=== PATIENT | male | born 1960 | race Caucasian/White ===

== ENCOUNTER 2016-11-06 09:55 | Day surgery (SDC) | payer OTHER ==
[2016-11-03 10:11] VITALS: BMI 29.5
[~2016-11-06 09:55] MED LIST: LACTATED RINGERS 1,000 ML IV SCH; LIDOCAINE 1% 20 ML VIAL (10MG/ML) FOR IV START INTRADERMA PRN
[2016-11-06 10:32] VITALS: TEMP 98
[2016-11-06] MEDS ORDERED: LACTATED RINGERS 1,000 ML IV ONE ×2 (10:32)
[2016-11-06 10:43] LABS: Glucose,Whole Blood 110 mg/dL (75-99)
[2016-11-06] MEDS ORDERED: LIDOCAINE 1% INJ 10MG/ML (20 ML MDV) ONE (11:30)
[2016-11-06] MEDS ORDERED: GLYCOPYRROLATE 0.2 MG/ML 2 ML VIAL ONE (11:30)
[2016-11-06] MEDS ORDERED: PROPOFOL 10 MG/ML 20 ML VIAL IV ONE (11:30)
[2016-11-06] MEDS ORDERED: ePHEDrine 50 MG/ML 1 ML AMP ONE (11:30)
[2016-11-06 12:06] VITALS: RESP 16
--- NOTE | 2016-11-06 12:08 | P.PCN ---
Date of Procedure: 11/06/16 Procedure(s) Performed: Procedure: Colonoscopy and biopsy. Preoperative diagnosis: Screening for neoplasia. Postoperative diagnosis: Small/diminutive polyps in the proximal and distal sigmoid biopsied, but no large polyps or cancer. Preparation: HalfLytely prep. Sedation: Was provided by anesthesia. Brief clinical history: The patient is a 56-year-old male who is referred for this evaluation for screening for neoplasia because of history of polyps. In addition, the patient was noted to have occult blood in his stools. He has no abdominal complaints, bleeding or anemia. Procedure: With the patient on his left lateral decubitus position and after informed consent and adequate sedation, the perianal area was inspected and it did not show any fissures or fistulas. There were no masses felt on digital rectal examination. The Olympus CFQ 160L video colonoscope was then inserted in the rectum in the usual fashion and advanced to the cecum. Unfortunately, the preparation was less than ideal and there was still fecal material and fecal debris encountered, especially on the left side and sigmoid, that could not be suctioned totally. There was small/diminutive polyps in the proximal and distal sigmoid that were biopsied but there were no large polyps or cancer or any other obvious pathology. I retroflexed endoscope in the rectum before the endoscope was withdrawn. Low-grade internal hemorrhoids were noted but there was no evidence of bleeding. The patient tolerated the procedure well. Plan: The patient was reassured. Discussed dietary measures and local care for hemorrhoids. With his history of polyps and less than ideal preparation today, I am recommending repeat exam in 2-3 years. He will follow up with you as planned.
[2016-11-06 12:15] VITALS: BP 118/77; PULSE 70
== END 2016-11-06 12:35 | disposition home or self-care (01) ==
LOC: ORWHC2ENDO 09:55
DX: D12.5 Benign neoplasm of sigmoid colon (principal); K64.8 Other hemorrhoids; K63.5 Polyp of colon; Z86.010 Personal history of colon polyps; E11.9 Type 2 diabetes mellitus without complications; Z79.84 Long term (current) use of oral hypoglycemic drugs; F17.200 Nicotine dependence, unspecified, uncomplicated; G47.33 Obstructive sleep apnea (adult) (pediatric)
CPT/HCPCS: 88305; 45380; J2001; J2704

== ENCOUNTER 2020-09-01 10:29 | Day surgery (SDC) | payer OTHER ==
[2020-08-31 15:17] VITALS: BMI 30.1
--- NOTE | 2020-08-31 17:34 | P.HPIHPCON ---
History of Present Illness H&P Date: 08/31/20 Chief Complaint: left ureteral stone Mr Garcia is a 60 yo male with hx of 4mm left distal ureteral stone. He has had three ED presentation secondary to his kidney stone. On evaluation in clinic patient is still symptomatic secondary to his stone. I discussed with him given his ongoing symptoms we can proceed with left sided ureteroscopy with holmium laser, Discussed risk which includes but not limited to bleeding, infection and injury to the ureter. He understood all risk and agreed to proceed with left sided ureteroscopy with holmium laser, stone basketting and possible stent placement Consent for Procedure: I have explained the operation/procedure to the patient, including the risks, benefits, side effects, alternative therapies (including not receiving the proposed treatment or service), the likelihood of the patient achieving his/her goals, and potential recuperation problems for the procedure/sedation/analgesia, as well as any blood products, if indicated. I also explained to the patient the risks, benefits and side effects of the alternatives, as well as the risks related to not receiving the proposed procedure, care, treatment, or services. Past Medical History Past Medical History: Diabetes Mellitus, Sleep Apnea/CPAP/BIPAP Additional Past Medical History / Comment(s): kidney stones, no cpap,eczema on arms, colon polyps History of Any Multi-Drug Resistant Organisms: None Reported Past Surgical History: No Surgical Hx Reported Additional Past Surgical History / Comment(s): colonoscopy Past Anesthesia/Blood Transfusion Reactions: No Reported Reaction, Family History of Problems w/ Anesthesia Additional Past Anesthesia/Blood Transfusion Reaction / Comment(s): mother-hard time waking up from anesthesia Smoking Status: Current every day smoker - Past Family History Mother Family Medical History: Cancer Medications and Allergies Home Medications Medication Instructions Recorded Confirmed Type Cephalexin [Keflex] 500 mg PO Q8HR 08/31/20 08/31/20 History HYDROcodone/APAP 5-325MG [Mclean 1 - 2 tab PO Q4HR PRN 08/31/20 08/31/20 History 5-325] Ibuprofen 800 mg PO TID PRN 08/31/20 08/31/20 History Tamsulosin HCl [Flomax] 0.4 mg PO 1500 08/31/20 08/31/20 History metFORMIN HCL [Glucophage] 1,000 mg PO BID 08/31/20 08/31/20 History Allergies Allergy/AdvReac Type Severity Reaction Status Date / Time No Known Allergies Allergy Verified 08/31/20 15:08 Surgical - Exam - General well developed, well nourished, moderate distress, moderate pain - ENT normal nares, normal mucosa - Respiratory normal expansion, normal respiratory effort - Psychiatric oriented to time, oriented to person, oriented to place Assessment and Plan Assessment: 60 yo male with hx of left sided ureteral stone OR for Left sided ureteroscopy with holmium laser, stone basketting and possible stent placement
[~2020-09-01 10:29] MED LIST changes: +DEXAMETHASONE SOD PHOSPHATE 4 MG/ML 1 ML VIAL IV ONE; +GENTAMICIN 120 MG in SODIUM CHLORIDE 0.9% 100 ML IVPB PRN; +HYDROmorphone 0.5 MG/0.5 ML SYRINGE IVP PRN; -LACTATED RINGERS 1,000 ML IV SCH; +LIDOCAINE 1% (10MG/ML) FOR IV START INTRADERMA PRN; -LIDOCAINE 1% 20 ML VIAL (10MG/ML) FOR IV START INTRADERMA PRN
--- NOTE | 2020-09-01 11:04 | XR ---
KUB HISTORY: Kidney stones Frontal KUB and 2 images No comparisons Multiple calcifications are present within the pelvis which are likely vascular. Difficult to exclude a distal ureteral calculus. Calcification superimposed over the right kidney is noted superimposed o eric the rib, but there may be 2 calcifications each measuring 3 to 4 mm. Overlying bowel gas obscures detail. Lung bases are clear. No pneumoperitoneum. IMPRESSION: Nephrolithiasis and additional findings above.
[2020-09-01 11:41] LABS: Glucose,Whole Blood 130 mg/dL (75-99)
[2020-09-01] MEDS: LACTATED RINGERS 1,000 ML IV SCH ×2 (11:42→12:08)
[2020-09-01] MEDS ORDERED: ONDANSETRON 4 MG/2 ML VIAL ONE (11:45)
[2020-09-01] MEDS ORDERED: PROPOFOL 10 MG/ML 20 ML VIAL IV ONE (12:05)
[2020-09-01] MEDS ORDERED: fentaNYL (PF) 50 MCG/ML 2 ML AMP ONE (12:05)
[2020-09-01] MEDS ORDERED: LIDOCAINE 1% INJ 10MG/ML (20 ML MDV) ONE (12:05)
[2020-09-01] MEDS ORDERED: SUCCINYLCHOLINE CHLORIDE 100 MG/5 ML SYR IV ONE (12:05)
[2020-09-01] MEDS ORDERED: ePHEDrine SULFATE/0.9% NACL/PF 50 MG/5 ML SYRINGE IV ONE (12:05)
[2020-09-01] MEDS ORDERED: MIDAZOLAM 2 MG/2 ML VIAL ONE (12:05)
[2020-09-01] MEDS ORDERED: IOPAMIDOL-370 50ML BTL MISCELLANE ONE (12:39)
[2020-09-01 13:09] VITALS: RESP 16; TEMP 97.8
--- NOTE | 2020-09-01 13:11 | P.OP ---
Date of Procedure: 09/01/20 Preoperative Diagnosis: Left ureteral calculi Postoperative Diagnosis: Same Procedure(s) Performed: Cystoscopy, left ureteroscopy, ureteral balloon dilation, holmium laser lithotripsy, stone basketing, retrograde pyelogram and stent placement Implants: 6-Chinese by 26 cm stent left on a string Anesthesia: CAROLYN Surgeon: Willie Arce Estimated Blood Loss (ml): 5 Pathology: other (ureteral stone) Condition: stable Disposition: PACU Indications for Procedure: Mr Garcia is a 60 yo male with hx of 4mm left distal ureteral stone. He has had three ED presentation secondary to his kidney stone. On evaluation in clinic patient is still symptomatic secondary to his stone. I discussed with him given his ongoing symptoms we can proceed with left sided ureteroscopy with holmium laser, Discussed risk which includes but not limited to bleeding, infection and injury to the ureter. He understood all risk and agreed to proceed with left sided ureteroscopy with holmium laser, stone basketting and possible stent placement Operative Findings: Left distal ureteral stone Description of Procedure: Patient was brought to the operating room, general anesthesia was induced. He was prepped and draped in sterile fashion a placemed in dorsal lithotomy position. Cystoscopy fitted with a 21-Chinese sheath was inserted per urethra, of note patient had a wide caliber bulbar stricture but I was able to navigate the scope past the stricture. Cystoscopy was performed which showed no abnormality within the bladder. Attention was then carried to the left ureteral orifice, cystoscope was withdrawn and the semirigid ureteroscope was inserted, and advanced up the urethra, I attempted to advance the ureteroscope past the UVJ but it was to narrowed. at this time a sensor wire was advanced through the ureteroscope and the ureteroscope was withdrawn with the wire in place. Next a cystoscope was backloaded over the wire and a ureteral balloon dilator was passed over the wire and into the UVJ. Using the balloon dilator the UVJ was dilated. Next the balloon dilator was removed with the wire in place. Next a semirigid ureteroscope was inserted per urethra and advanced up the left ureteral orifice, the stone was encountered in the distal ureter. Using the holmium laser the stone was fragmented into small fragments. Stone fragments were removed using the stone basket and sent to pathology. Next the ureteroscope was advanced all the way up to the proximal ureter and there was no evidence of any stones. Retrograde Pyelogram was performed which showed no filling defect within the kidney. Pullback ureteroscopy was performed which showed no injury to the ureter or any sizable ureteral fragments. A ureteral stent was passed over the wire, the proximal curl was visualized on fluoroscopy and the distal curl was visualized using the cystoscope. The bladder was emptied and the case. The patient started the procedure well was taken to PACU in stable condition
[2020-09-01 13:16] LABS: Glucose,Whole Blood 141 mg/dL (75-99)
[2020-09-01 14:06] VITALS: BP 141/75; PULSE 72
--- NOTE | 2020-09-01 14:11 | FL ---
Fluoroscopy HISTORY: Kidney stone, stent placement 12 seconds fluoroscopy time supplied to the referring clinician. 4 intraoperative C-arm images docum ent the procedure. See dictated report from urology.
== END 2020-09-01 14:29 | disposition home or self-care (01) ==
LOC: OR 10:29
PROVIDERS: ATTEND Urology
DX: N20.2 Calculus of kidney with calculus of ureter (principal); E11.9 Type 2 diabetes mellitus without complications; F17.210 Nicotine dependence, cigarettes, uncomplicated; L30.9 Dermatitis, unspecified; Z86.010 Personal history of colon polyps; G47.30 Sleep apnea, unspecified; Z98.890 Other specified postprocedural states; Z82.49 Family history of ischemic heart disease and other diseases of the circulatory system; Z80.9 Family history of malignant neoplasm, unspecified; Z79.84 Long term (current) use of oral hypoglycemic drugs; Z79.899 Other long term (current) drug therapy
CPT/HCPCS: 74018; 74420; 82365

== ENCOUNTER → 2020-10-05 | Outpatient (CLI) | payer OTHER ==
--- NOTE | 2020-10-05 15:27 | US ---
EXAMINATION TYPE: US kidneys/renal and bladder DATE OF EXAM: 10/05/2020 COMPARISON: NONE CLINICAL HISTORY: 60-year-old male N20.1 Calculus in bladder. TECHNIQUE: Multiple sonographic images of the kidneys and bladder are obtained. FINDINGS: EXAM MEASUREMENTS: Right Kidney: 13.0 x 4.6 x 5.4 cm without hydronephrosis. Left Kidney: 12.4 x 5.6 x 6.6 cm without hydronephrosis. There is an upper pole cortical cyst measuri ng 2.2 cm. Bladder: wnl Bilateral Jets seen: Yes IMPRESSION: No hydronephrosis. Incidental upper pole cortical cyst on the left measures 2.2 cm.
== END | disposition home or self-care (01) ==
LOC: RADUSWWP 12:49
PROVIDERS: ATTEND Urology
DX: N20.1 Calculus of ureter (principal)
CPT/HCPCS: 76770

== ENCOUNTER → 2021-05-02 | Outpatient (CLI) | payer OTHER ==
[2021-05-02 12:53] VITALS: BP 131/79; PULSE 73; RESP 18; TEMP 98
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
== END | disposition home or self-care (01) ==
LOC: PNWHC3 12:26
DX: M48.02 Spinal stenosis, cervical region (principal); M47.892 Other spondylosis, cervical region
CPT/HCPCS: 99211

== ENCOUNTER → 2021-06-24 | Day surgery (SDC) | payer OTHER ==
[~2021-06-24] MED LIST changes: +.fentaNYL (PF) 50 MCG/ML 2 ML AMP ONE; -DEXAMETHASONE SOD PHOSPHATE 4 MG/ML 1 ML VIAL IV ONE; -GENTAMICIN 120 MG in SODIUM CHLORIDE 0.9% 100 ML IVPB PRN; -HYDROmorphone 0.5 MG/0.5 ML SYRINGE IVP PRN; +LACTATED RINGERS 1,000 ML IV SCH; +LIDOCAINE 1% (10MG/ML) FOR IV START INTRADERMA ONE; -LIDOCAINE 1% (10MG/ML) FOR IV START INTRADERMA PRN; +MIDAZOLAM 2 MG/2 ML VIAL ONE; +ROPIVACAINE 5MG/ML 20ML VIAL ONE; +methylPREDNISolone ACETATE 40 MG/ML 1 ML VIAL ONE
[2021-06-24 12:29] VITALS: TEMP 97.3
[2021-06-24 12:35] LABS: Glucose,Whole Blood 208 mg/dL (75-99)
--- NOTE | 2021-06-24 13:44 | FL ---
EXAMINATION TYPE: FL guided pain mgmt statistic DATE OF EXAM: 06/24/2021 HISTORY: Fluoroscopy time 20 seconds of fluoroscopy provided. IMPRESSION: 1. Fluoroscopy time.
[2021-06-24 13:45] LABS: Glucose,Whole Blood 196 mg/dL (75-99)
[2021-06-24 13:52] VITALS: BP 120/73; PULSE 70; RESP 17
--- NOTE | 2021-06-24 14:51 | P.PCN ---
Date of Procedure: 06/24/21 Procedure(s) Performed: PREOPERATIVE DIAGNOSIS: Cervical Spondylosis with Facet Arthropathy.without myelopathy. 2-myofascial pain syndrome thoracic paraspinal muscles and right shoulder blade area POSTOPERATIVE DIAGNOSIS: Cervical Spondylosis Facet Arthropathy. Without myelopathy PROCEDURES:1- Diagnostic right. C4 , C5 , and C6 medial branch blocks, with fluoroscopic guidance (fluoroscopy images available in radiology department ) ( to target the facet joint at Right C4- 5 , C5- 6 ). 2-trigger point injections right side thoracic para vertebral muscles and right shoulder blade area, a total of 4 trigger point injected ANESTHESIA: monitered anesthesia care, as per anesthesia department . EBL: Minimal PROCEDURE INDICATION: The patient with neck pain secondary to cervical arthropathy unresponsive to more conservative treatments. PROCEDURE DESCRIPTION / TECHNIQUE: The patient was seen and identified in the preoperative area. Risks, benefits, complications, and alternatives were discussed with the patient, the patient agreed to proceed with the procedure and signed the consent. IV was started. Vital signs remained stable throughout the procedure. Patient was taken to the OR and time out was completed. The patient was placed in the prone position on the procedure table. A pillow was placed under the patients chest to increase the cervical interlaminar space. The cervical area was prepped and draped in the usual sterile fashion. Critical pause was taken. Vital signs were closely monitored during the procedure. Conscious sedation was used during the procedure to decrease patients anxiety. Using cross-table lateral fluoroscopy, the centroid of the trapezoid of right C4 , C5 and C6, was identified, marked, and localized with 1% lidocaine 1 ml at each level for skin and Sub Q infiltrations . Subsequently, a 25 G 3 spinal needle was advanced guided by fluoroscopy to the centroid of the trapezoid of Right C4 , C5, C6 . Arroyo tip position was confirmed at the centroid of the trapezoids of Right C4 , C5 ,C6 with anteroposterior fluoroscopy. Subsequently, 1.5 ml of preservative-free Ropivacaine 0.5% mixed with Depo- Medrol 40 mg and half ml of the mixture was injected after negative aspiration for blood and CSF. Arroyo was then removed intact . In the trigger point injection in the right side thoracic paraspinal muscles, right shoulder blade area ( total 4 trigger point ) each one of them injected with ropivacaine 0.5% using 25-gauge needle, injections and after negative aspiration and there was no paresthesia during the injection patient tolerated the procedure well without any complications COMPLICATIONS: No acute complications. DISPOSITION / PLANS: The patient was placed in a supine position and transferred to the recovery area in a stable condition for observation and was discharged from the recovery room after meeting discharge criteria. Home discharge instructions given to the patient by the staff. The patient was reexamined prior to discharge. The patient will schedule a follow up in the clinic in 2-4 weeks.
== END ==
LOC: ORPAIN 12:07
PROVIDERS: ATTEND Specialist
DX: M47.812 Spondylosis without myelopathy or radiculopathy, cervical region (principal); M47.22 Other spondylosis with radiculopathy, cervical region
CPT/HCPCS: 20553; 64490; 64491; J2250; J3010

== ENCOUNTER → 2021-07-27 | Outpatient (CLI) | payer OTHER ==
[2021-07-27 10:34] VITALS: BP 118/73; PULSE 89; RESP 18
== END | disposition home or self-care (01) ==
LOC: PNWHC3 08:34
PROVIDERS: ATTEND Physician Assistant Medical
DX: M54.2 Cervicalgia (principal); M25.511 Pain in right shoulder
CPT/HCPCS: 99211

== ENCOUNTER → 2021-09-08 | Day surgery (SDC) | payer OTHER ==
[2021-09-07 11:34] VITALS: BMI 29.6
[~2021-09-08] MED LIST changes: -.fentaNYL (PF) 50 MCG/ML 2 ML AMP ONE; +IV FLUID CONTINUATION 700 ML IV ONE; +LACTATED RINGERS 1,000 ML IV ONE; -LIDOCAINE 1% (10MG/ML) FOR IV START INTRADERMA ONE; +TRIAMCINOLONE ACETONIDE 40 MG/ML 1 ML VIAL ONE; +fentaNYL (PF) 50 MCG/ML 2 ML AMP ONE; -methylPREDNISolone ACETATE 40 MG/ML 1 ML VIAL ONE
[2021-09-08 07:23] VITALS: PULSE 84; RESP 16; TEMP 98.3
[2021-09-08 07:43] LABS: Glucose,Whole Blood 196 mg/dL (75-99)
--- NOTE | 2021-09-08 08:14 | P.PCN ---
Date of Procedure: 09/08/21 Description of Procedure: Pre and postop diagnosis: Myofascial pain syndrome Procedure: Trigger point injections X 4 Muscle group X right side trapezius, right-sided cervical paraspinal, and right-sided latissimus dorsi muscle Surgeon: Amelia Beaver Anesthesia: Versed 1 mg, and fentanyl 50 g Complications: None Estimated blood loss: None Specimen removed: None Procedure indications: Patient had a history of myofascial pain syndrome. Patient tried conservative therapy. Came here for intervention procedure for better pain relief. Procedure description: Patient was seen and identified in the holding area risk benefits competitions alternative discussed with the patient. Patient agreed to proceed for the procedure signed the consent. Patient taken to the procedure area. Timeout was completed. A total number of 4 - trigger point area was marked with a sterile marker. After ChloraPrep used to clean the area. Critical pause was taken. Using 25-gauge 1-1/[address] half way. Needle entered in each market site 4 mL of block solution injected at each level. The block solution containing 15 ml of 0.5% preservative-free ropivacaine with Kenlog 40 MG. Needle removed intact skin cleaned and Band-Aid applied. Patient tolerated the procedure well. Disposition: Patient discharge home after meeting the discharge criteria from the recovery. Patient scheduled to follow up with the pain clinic in 4 weeks for follow-up visit.
[2021-09-08 08:51] VITALS: BP 141/76
== END ==
LOC: ORPAIN 07:05
DX: M79.18 Myalgia, other site (principal); M19.90 Unspecified osteoarthritis, unspecified site; Z98.890 Other specified postprocedural states
CPT/HCPCS: 20553; J2250; J3301; J3010; J2795; 99152

== ENCOUNTER → 2022-01-06 | Day surgery (SDC) | payer OTHER ==
[2022-01-05 12:30] VITALS: BMI 27.3
[~2022-01-06] MED LIST changes: -IV FLUID CONTINUATION 700 ML IV ONE; -LACTATED RINGERS 1,000 ML IV ONE; +PROPOFOL 10 MG/ML 20 ML VIAL IV ONE; -ROPIVACAINE 5MG/ML 20ML VIAL ONE; -TRIAMCINOLONE ACETONIDE 40 MG/ML 1 ML VIAL ONE
[2022-01-06 07:54] LABS: Glucose,Whole Blood 136 mg/dL (70-110)
[2022-01-06 07:55] VITALS: RESP 16; TEMP 97.7
--- NOTE | 2022-01-06 09:07 | P.PCN ---
Date of Procedure: 01/06/22 Procedure(s) Performed: BRIEF HISTORY: Patient is a 61-year-old pleasant white male scheduled for an elective colonoscopy as a part of evaluation of prior history of colon polyps. Last colonoscopy was 5 years ago. PROCEDURE PERFORMED: Colonoscopy with snare polypectomy PREOPERATIVE DIAGNOSIS: History of colon polyps. IV sedation per Anesthesia. PROCEDURE: After informed consent was obtained, the patient, was brought into the endoscopy unit. IV sedation was administered by Anesthesia under continuous monitoring. Digital rectal examination was normal. Initially the Olympus CF-160 flexible video colonoscope was then inserted in the rectum, gradually advanced into the cecum without any difficulty. Careful examination was performed as the scope was gradually being withdrawn. Ileocecal valve and the appendiceal orifice were visualized and appeared normal. Prep was excellent. Mucosa of the cecum, a 5 mm polyp that was removed by snare polypectomy. In the hepatic flexure there was a 1 cm broad-based polyp removed by snare polypectomy. Rest of the ascending colon, transverse colon, descending colon were normal. In the sigmoid colon there was a 5 mm pedunculated sigmoid polyp removed by snare polypectomy. In the rectosigmoid colon there was a 5 mm, 6 mm and 7 mm 2 polyps removed by snare polypectomy. In the rectum there was a 2 mm, 4 mm and 5 mm sessile polyps removed by snare polypectomy.. Retroflexion was performed in the rectum and no lesions were seen. The patient tolerated the procedure well. IMPRESSION: 5 mm to cecal polyp status post snare polypectomy 1 cm hepatic flexure polyp status post polypectomy 5 mm sigmoid colon polyp status post polypectomy 5 mm, 6 cm and 7 mm 2 rectosigmoid polyps status post polypectomy 3 mm, 4 mm and 5 mm rectal polyps status post polypectomy RECOMMENDATIONS: Findings of this examination were discussed with the patient as well as his family. He was advised to follow with the biopsy results. If the biopsy reveals adenoma he can have a repeat colonoscopy in 3 years..
[2022-01-06 09:38] VITALS: BP 119/78; PULSE 77
== END ==
LOC: ORWHC2ENDO 07:24
PROVIDERS: ATTEND Internal Medicine Gastroenterology
DX: Z12.11 Encounter for screening for malignant neoplasm of colon (principal); D12.0 Benign neoplasm of cecum; D12.3 Benign neoplasm of transverse colon; D12.5 Benign neoplasm of sigmoid colon; K62.1 Rectal polyp; Z86.010 Personal history of colon polyps; E11.9 Type 2 diabetes mellitus without complications; F17.200 Nicotine dependence, unspecified, uncomplicated; Z79.84 Long term (current) use of oral hypoglycemic drugs; Z80.0 Family history of malignant neoplasm of digestive organs
CPT/HCPCS: 88305; 45385; J2250; J3010; J2704

== ENCOUNTER → 2023-09-18 | Outpatient (CLI) | payer OTHER ==
--- NOTE | 2023-09-19 14:35 | US ---
EXAMINATION TYPE: US kidneys/renal and bladder DATE OF EXAM: 09/18/2023 COMPARISON: NONE CLINICAL INDICATION: Male, 63 years old with history of R10.2 PELVIC PAIN N20.0 CALCULUS OF KIDNEY; B ack pain, hematuria. History of kidney stones EXAM MEASUREMENTS: Right Kidney: 13.0 x 4.9 x 5.3 cm Left Kidney: 13.6 x 5.9 x 4.4 cm Right Kidney: Echogenic focus midpole = 0.6cm. No hydronephrosis. Left Kidney: Mild hydronephrosis. Benign upper pole renal cortical cyst measuring 2.8 x 3.1 x 3.0cm Bladder: appears wnl. Prostate gland is borderline enlarged at 4.0 cm wide. Bilateral Jets seen: no IMPRESSION: 1. No hydronephrosis. 2. A nonobstructive 6 mm right midpole renal stone.
== END | disposition home or self-care (01) ==
LOC: RADUSWWP 12:58
PROVIDERS: ATTEND Student in an Organized Health Care Education/Training Program
DX: N20.0 Calculus of kidney (principal)
CPT/HCPCS: 76770

== ENCOUNTER → 2023-10-03 | Outpatient (CLI) | payer OTHER ==
[2023-10-03 18:41] LABS: Eosinophils # (A) 0.44 X 10*3/uL (0.04-0.35); Eosinophils % (A) 4.5 %; HCT 45.6 % (39.6-50.0); HGB 15.7 g/dL (13.0-17.0); Lymphocytes # (A) 3.58 X 10*3/uL (0.90-5.00); MCH 33.5 pg (27.0-32.0); MCHC 34.4 g/dL (32.0-37.0); MCV 97.2 FL (80.0-97.0); Mean Platelet Volume 9.3 FL (9.5-12.2); Monocytes # (A) 0.87 X 10*3/uL (0.20-1.00); NRBC Per 100 WBC 0 X 10*3/uL (0.00-0.01); Neutrophils # (A) 4.66 X 10*3/uL (1.80-7.70); Neutrophils % (A) 48.2 %; Platelet Count 249 X 10*3/uL (140-440); RBC 4.69 X 10*6/uL (4.40-5.60); RDW 12.5 % (11.5-14.5); WBC 9.68 X 10*3/uL (4.50-10.00)
[2023-10-03 18:52] LABS: BUN/Creat Ratio 14.71 Ratio (12.00-20.00); Blood Urea Nitrogen 10.3 mg/dL (9.0-27.0); Calcium 10.1 mg/dL (8.7-10.3); Carbon Dioxide 24.9 mmol/L (21.6-31.8); Chloride 107 mmol/L (96-109); Glucose 157 mg/dL (70-110); Potassium 4.4 mmol/L (3.5-5.5); Sodium 143 mmol/L (135-145)
[2023-10-03 23:21] LABS: Appearance,Urine Clear (Clear); Bilirubin,Urine Negative (Negative); Blood,Urine Negative (Negative); Color,Urine Yellow (Yellow); Ketones,Urine Trace (Negative); Nitrite,Urine Negative (Negative); PH, Urine 5.5; Specific Gravity,Urine 1.023 (1.001-1.030); Urobilinogen,Urine 0.2 E.U./DL
== END | disposition home or self-care (01) ==
LOC: LABPAT 13:04
PROVIDERS: ATTEND Urology
DX: Z01.812 Encounter for preprocedural laboratory examination (principal); N20.0 Calculus of kidney; R31.0 Gross hematuria
CPT/HCPCS: 36415; 80048; 81003; 85025; 87086

== ENCOUNTER 2023-10-10 10:54 | Day surgery (SDC) | payer OTHER ==
[~2023-10-10 10:54] MED LIST changes: +DEXAMETHASONE SOD PHOSPHATE 4 MG/ML 1 ML VIAL IV ONE; +HYDROmorphone 0.5 MG/0.5 ML SYRINGE IVP PRN; -LACTATED RINGERS 1,000 ML IV SCH; +LIDOCAINE 1% (10MG/ML) FOR IV START INTRADERMA PRN; +MIDAZOLAM 2 MG/2 ML VIAL IV PRN; -MIDAZOLAM 2 MG/2 ML VIAL ONE; -PROPOFOL 10 MG/ML 20 ML VIAL IV ONE; -fentaNYL (PF) 50 MCG/ML 2 ML AMP ONE
[2023-10-10] MEDS: LACTATED RINGERS 1,000 ML IV SCH (11:34)
[2023-10-10] MEDS: ONDANSETRON 4 MG/2 ML VIAL IVP ONE (11:47)
[2023-10-10 11:50] LABS: Glucose,Whole Blood 171 mg/dL (70-110)
--- NOTE | 2023-10-10 12:03 | P.HPIHPCON ---
History of Present Illness H&P Date: 10/10/23 Chief Complaint: Gross hematuria, right-sided renal stones This is a 63-year-old male with history of a 6 mm right-sided renal stone, and having recurrent gross hematuria. He is symptomatic from his stone. Discussed with him I do recommend evaluation with a cystoscopy and upper tract imaging. He did undergo a renal bladder ultrasound was only significant for renal stone. Discussed with him we will proceed to the OR with a cystoscopy and a bilateral retrograde pyelogram, we will address his right-sided renal stone at the same time given his symptoms. Risk of bleeding, infection, injury to the ureter were discussed in details. Discussed also if I do see abnormality on cystoscopy then we will proceed with a biopsy. Consent for Procedure: I have explained the operation/procedure to the patient, including the risks, benefits, side effects, alternative therapies (including not receiving the proposed treatment or service), the likelihood of the patient achieving his/her goals, and potential recuperation problems for the procedure/sedation/analgesia, as well as any blood products, if indicated. I also explained to the patient the risks, benefits and side effects of the alternatives, as well as the risks related to not receiving the proposed procedure, care, treatment, or services. Past Medical History Past Medical History: COPD, Diabetes Mellitus, Skin Disorder, Sleep Apnea/C PAP/BIPAP Additional Past Medical History / Comment(s): Hx kidney stones, eczema , colon polyps. left foot pain flat foot. pt not wearing cpap, vertigo History of Any Multi-Drug Resistant Organisms: MRSA Date of last positivie culture/infection: 2022 MDRO Source:: rt side Past Surgical History: No Surgical Hx Reported Additional Past Surgical History / Comment(s): Colonoscopy, kidney stone surgery. wisdom teeth Past Anesthesia/Blood Transfusion Reactions: No Reported Reaction, Motion Sickness Additional Past Anesthesia/Blood Transfusion Reaction / Comment(s): SP[place] Smoking Status: Current every day smoker - Past Family History Mother Family Medical History: Cancer Additional Family Medical History / Comment(s): COLON CANCER Medications and Allergies Home Medications Medication Instructions Recorded Confirmed Type Ibuprofen 800 mg PO TID PRN 08/31/20 10/10/23 History metFORMIN HCL [Glucophage] 1,000 mg PO BID 08/31/20 10/10/23 History Ibuprofen/Diphenhydramine HCl 1 each PO DIRECTED PRN 10/03/23 10/10/23 History [Advil Pm Liqui-Gels] Tamsulosin HCl [Flomax] 0.4 mg PO DIRECTED PRN 10/03/23 10/10/23 History Allergies Allergy/AdvReac Type Severity Reaction Status Date / Time No Known Allergies Allergy Verified 10/10/23 11:31 Surgical - Exam Vital Signs Temp Pulse Resp BP Pulse Ox 97.0 F L 67 18 111/62 98 10/10/23 11:30 10/10/23 11:30 10/10/23 11:30 10/10/23 11:30 10/10/23 11:30 - General no distress, no pain - Eyes normal ocular movement, no pale - ENT normal nares, normal mucosa - Respiratory normal expansion, normal respiratory effort - Abdomen Abdomen: soft, non tender Results - Labs Abnormal Lab Results - Last 24 Hours (Table) 10/10/23 Range/Units 11:42 POC Glucose (mg/dL) 171 H (70-110) mg/dL Assessment and Plan Assessment: OR for cystoscopy, bilateral retrograde pyelogram, right ureteroscopy, holmium laser lithotripsy, stone basketing and stent insertion
[2023-10-10] MEDS ORDERED: PHENYLEPHRINE 10 MG/ML VIAL ONE (12:18)
[2023-10-10] MEDS ORDERED: fentaNYL (PF) 50 MCG/ML 2 ML AMP ONE (12:18)
[2023-10-10] MEDS ORDERED: GLYCOPYRROLATE 0.2 MG/ML 2 ML VIAL ONE (12:18)
[2023-10-10] MEDS ORDERED: LIDOCAINE 1% INJ 10MG/ML (20 ML MDV) ONE (12:18)
[2023-10-10] MEDS ORDERED: ePHEDrine 50 MG/ML 1 ML VIAL ONE (12:18)
[2023-10-10] MEDS ORDERED: PROPOFOL 10 MG/ML 20 ML VIAL IV ONE (12:18)
--- NOTE | 2023-10-10 12:43 | XR ---
EXAMINATION TYPE: XR KUB DATE OF EXAM: 10/10/2023 11:26 AM CLINICAL INDICATION:Male, 63 years old with history of kidney stones; [facility] COMPARISON: 09/01/2020 TECHNIQUE: One radiographic view of the abdomen was obtained. FINDINGS: The bowel gas pattern is nonspecific without dilated loops of small or large bowel. There i s no evidence for organomegaly or pneumoperitoneum. The osseous structures are intact. Right renal calculi measuring up to 7 mm. Fecal material and gas are demonstrated throughout the colon and rectum . IMPRESSION: 1. Right renal calculi measuring up to 7 mm. 2. Nonspecific bowel gas pattern without radiographic evidence for acute process.
[2023-10-10] MEDS: IOPAMIDOL-370 100ML BTL MISCELLANE ONE (12:47)
--- NOTE | 2023-10-10 13:45 | P.OP ---
Date of Procedure: 10/10/23 Preoperative Diagnosis: Gross hematuria, right renal stone Postoperative Diagnosis: Same Procedure(s) Performed: Cystoscopy, bilateral retrograde pyelogram, right ureteroscopy, holmium laser lithotripsy, ureteral balloon dilation stone basketing and stent insertion Implants: 7 Cymro by 26 cm stent in the right ureter left on a string Anesthesia: CAROLYN Surgeon: Willie Arce Estimated Blood Loss (ml): 5 Pathology: other (right renal stone) Condition: stable Disposition: PACU Indications for Procedure: This is a 63-year-old male with history of a 6 mm right-sided renal stone, and having recurrent gross hematuria. He is symptomatic from his stone. Discussed with him I do recommend evaluation with a cystoscopy and upper tract imaging. He did undergo a renal bladder ultrasound was only significant for renal stone. Discussed with him we will proceed to the OR with a cystoscopy and a bilateral retrograde pyelogram, we will address his right-sided renal stone at the same time given his symptoms. Risk of bleeding, infection, injury to the ureter were discussed in details. Discussed also if I do see abnormality on cystoscopy then we will proceed with a biopsy Operative Findings: Right-sided renal stone Description of Procedure: Patient brought to the operating room, general anesthesia was induced. He was prepped and draped in sterile fashion and placed in a dorsolithotomy position. Cystoscopy fitted with a 21 Cymro sheath was inserted per urethra, cystoscopy was performed which showed no abnormality within the bladder. 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 Attention was then carried to the left ureteral orifice which was intubated with an open-ended catheter, retrograde pyelogram was performed on that side which showed no filling defect or hydronephrosis. Attention was then carried to the right side which was intubated with an open ended catheter. Retrograde pyelogram was performed on that side which showed no hydronephrosis, patient had a duplicated system with a common sheath at the distal ureter. There was a questionable filling defect at the upper moiety within the upper pole. Of note patient did have narrowing at the UVJ. At this time a sensor wire was advanced through the catheter and the catheter was removed with the wire in place. I attempted to advance the wire into the upper moiety but was not able to. At this time the 12 Cymro balloon dilator was passed over the wire and the UVJ was dilated under fluoroscopy. Next the semirigid ureteroscope was advanced per urethra and up the right ureteral orifice, it was advanced up into the point where the ureter splits, at this point I was able to advance a wire into the upper moiety. I further advanced the semirigid ureteroscope through the sp litting of the ureter all the way up to the mid ureter which showed no stones. Pullback ureteroscopy was performed showed no ureteral stone or injury to the ureter. Next under fluoroscopy and 1113 Cymro access sheath was passed over the wire and into the proximal ureter. The flexible ureteroscope was inserted through the access sheath, renoscopy was performed showed a large stone in the upper pole. Using the holmium laser the stone was fragmented, sizable stone fragments were removed and sent for analysis. Pullback ureteroscopy was performed showed no injury to the ureter or any ureteral stones, as ureteroscope was withdrawn and a sensor wire was advanced through. Under under fluoroscopy there is no radiopaque densities that were visualized. Next a ureteral stent was passed over the wire, the proximal curl was visualized on fluoroscopy and the distal curl was visualized using the cystoscope. The stent was left on a string and taped to the patient penis. Patient tolerated the procedure was taken to recovery in stable condition
[2023-10-10 13:53] VITALS: TEMP 97.4
[2023-10-10] MEDS ORDERED: ACETAMINOPHEN TAB 325 MG TAB ONE (14:54)
[2023-10-10] MEDS: ACETAMINOPHEN TAB 325 MG TAB PO ONE (14:55)
[2023-10-10 15:11] VITALS: BP 137/84; PULSE 81; RESP 18
--- NOTE | 2023-10-10 16:21 | FL ---
EXAMINATION TYPE: FL urography retrograde Intraoperative/procedural fluoroscopic services were provid ed. Total fluoroscopy time is 1 minute 42 seconds seconds with a total of 13 submitted images to PACS . Please see the operative/procedural note for further details. DAP: 14.041 Gycm2
== END 2023-10-10 15:23 | disposition home or self-care (01) ==
LOC: OR 10:54
PROVIDERS: ATTEND Urology
DX: N20.0 Calculus of kidney (principal); R31.0 Gross hematuria; G47.33 Obstructive sleep apnea (adult) (pediatric); F17.210 Nicotine dependence, cigarettes, uncomplicated; Z79.84 Long term (current) use of oral hypoglycemic drugs; Z79.899 Other long term (current) drug therapy; Z98.890 Other specified postprocedural states; J44.9 Chronic obstructive pulmonary disease, unspecified; F17.200 Nicotine dependence, unspecified, uncomplicated
CPT/HCPCS: 82365; 74420; 74018; 52356; C2625; C1758; C1769; J0690; J2405; J2001; J3010; J2704; Q9967; J2371

== ENCOUNTER → 2024-09-22 | Outpatient (CLI) | payer OTHER ==
--- NOTE | 2024-09-22 11:05 | US ---
EXAMINATION TYPE: US arterial LE multi level DATE OF EXAM: 09/22/2024 10:50 AM COMPARISONS: 04/10/23. CLINICAL INDICATION: Male, 64 years old with history of I73.9 PERIPHERAL VASCULAR DISEASE, UNSPECIFIE D; left leg pain TECHNIQUE: Systolic pressures were taken of the upper and lower extremity arteries with ankle-brachia l indices and toe brachial indices calculated bilaterally. History of: Smoker: current Hypertension: no Diabetic: yes Hyperlipidemia: no TIA/CVA: no Previous Vascular Surgery: no CAD: no [place]: no Vascular Ulcers: no Claudication: yes in left Gangrene: no FINDINGS: Doppler Waveforms: Right: Left: Pulse Volume Recording: Pressure Gradients: Brachial Artery systolic pressure: Right: 126 Left: 128 Posterior Tibial artery systolic pressure: Right: 104 Left: 92 Dorsalis Pedis artery systolic pressure: Right: 103 Left: 80 Toe artery systolic pressure: Right: 34 Left: 27 Ankle-Brachial Indices: Right: 0.81 Left: 0.72 Toe Brachial Indices: Right: 0.27 Left: 0.21 (Normal > 0.6; Mild 0.35 - 0.59, Moderate 0.12 - 0.34, Severe <0.12) IMPRESSION: TIFFANIE: Right: Mild Arterial Disease 0.8 - 0.9, Recommendation: None Left: Some Arterial Disease 0.7 - 0.8, , Recommendation: Treat Risk Factors [facility], , 09/22/2024 11:02 AM
== END | disposition home or self-care (01) ==
LOC: RADUSWWP 09:49
PROVIDERS: ATTEND Student in an Organized Health Care Education/Training Program
DX: I73.9 Peripheral vascular disease, unspecified (principal)
CPT/HCPCS: 93923

== ENCOUNTER → 2024-11-07 | Day surgery (SDC) | payer OTHER ==
[~2024-11-07] MED LIST changes: -DEXAMETHASONE SOD PHOSPHATE 4 MG/ML 1 ML VIAL IV ONE; -HYDROmorphone 0.5 MG/0.5 ML SYRINGE IVP PRN; -MIDAZOLAM 2 MG/2 ML VIAL IV PRN; +PROPOFOL 10 MG/ML 20 ML VIAL IV ONE
[2024-11-07 13:00] VITALS: RESP 16; TEMP 97.9
[2024-11-07 13:17] LABS: Glucose,Whole Blood 174 mg/dL (70-110)
[2024-11-07] MEDS: LACTATED RINGERS 1,000 ML IV ONE (13:18)
[2024-11-07] MEDS: LACTATED RINGERS 1,000 ML IV SCH (13:18)
--- NOTE | 2024-11-07 14:02 | P.PCN ---
Date of Procedure: 11/07/24 Procedure(s) Performed: BRIEF HISTORY: Patient is a 64-year-old pleasant white male scheduled for an elective colonoscopy as a part of screening for history of colon polyps. Her last colonoscopy was greater than noted to have multiple colon polyps. PROCEDURE PERFORMED: Colonoscopy with snare polypectomy. PREOPERATIVE DIAGNOSIS: Screening for history of colon polyps. IV sedation per Anesthesia. PROCEDURE: After informed consent was obtained, the patient, was brought into the endoscopy unit. IV sedation was administered by Anesthesia under continuous monitoring. Digital rectal examination was normal. Initially the Olympus CF-160 flexible video colonoscope was then inserted in the rectum, gradually advanced into the cecum without any difficulty. Careful examination was performed as the scope was gradually being withdrawn. Ileocecal valve and the appendiceal orifice were visualized and appeared normal. Prep was excellent. Mucosa of the cecum, appeared normal. The ascending colon was a 5 mm polyp removed by cold snare polypectomy. Rest of the ascending colon, transverse colon, descending colon, sigmoid colon, and rectum appeared normal. The rectosigmoid colon there was a 6 mm x 7 mm polyp removed by snare polypectomy. Retroflexion was performed in the rectum and no lesions were seen. The patient tolerated the procedure well. IMPRESSION: 5 mm ascending colon polyp status post cold snare polypectomy 6 mm and 7 mm rectosigmoid polyp status post polypectomy RECOMMENDATIONS: Findings of this examination were discussed with the patient as well as his family. He was advised to follow-up with the biopsy results. If the biopsy reveals adenoma he can have repeat colonoscopy in 3 years..
[2024-11-07 14:29] VITALS: BP 120/74; PULSE 68
== END ==
LOC: ORWHC2ENDO 12:18
PROVIDERS: ATTEND Internal Medicine Gastroenterology
DX: Z12.11 Encounter for screening for malignant neoplasm of colon (principal); D12.5 Benign neoplasm of sigmoid colon; D12.2 Benign neoplasm of ascending colon; K21.9 Gastro-esophageal reflux disease without esophagitis; J44.9 Chronic obstructive pulmonary disease, unspecified; E11.9 Type 2 diabetes mellitus without complications; F17.210 Nicotine dependence, cigarettes, uncomplicated; G47.33 Obstructive sleep apnea (adult) (pediatric); N20.0 Calculus of kidney; Z99.89 Dependence on other enabling machines and devices; Z88.8 Allergy status to other drugs, medicaments and biological substances; Z79.899 Other long term (current) drug therapy
CPT/HCPCS: 88305; 45385; J2704

== ENCOUNTER → 2025-01-13 | Outpatient (CLI) | payer OTHER ==
[2025-01-13 15:47] LABS: ALT 22 U/L (10-49); AST 21 U/L (14-35); Anion Gap 12.10 mmol/L (4.00-12.00); BUN/Creat Ratio 22.29 Ratio (12.00-20.00); Blood Urea Nitrogen 15.6 mg/dL (9.0-27.0); Calcium 9.2 mg/dL (8.7-10.3); Carbon Dioxide 22.9 mmol/L (21.6-31.8); Chloride 105 mmol/L (96-109); Cholesterol 129.00 mg/dL (0.00-200.00); Glucose 166 mg/dL (70-110); HDL Cholesterol 40.30 mg/dL (40.00-60.00); LDL Cholesterol,Calculated 69.3 mg/dL (0.0-131.0); Potassium 4.2 mmol/L (3.5-5.5); Sodium 140 mmol/L (135-145); Triglycerides 96.90 mg/dL (0.00-149.00); VLDL Calculation 19.38 mg/dL (5.00-40.00)
== END | disposition home or self-care (01) ==
LOC: LABWHC1 09:51
PROVIDERS: ATTEND Internal Medicine Cardiovascular Disease
DX: E78.2 Mixed hyperlipidemia (principal); I73.9 Peripheral vascular disease, unspecified; R94.31 Abnormal electrocardiogram [ECG] [EKG]
CPT/HCPCS: 36415; 80048; 80061; 84443; 84450; 84460

== ENCOUNTER → 2025-01-28 | Outpatient (CLI) | payer OTHER ==
[~2025-01-28] MED LIST changes: -LIDOCAINE 1% (10MG/ML) FOR IV START INTRADERMA PRN; -PROPOFOL 10 MG/ML 20 ML VIAL IV ONE; +REGADENOSON 0.4 MG/5 ML SYRINGE IV PRN
--- NOTE | 2025-01-28 11:29 | NM ---
EXAMINATION TYPE: NM stress lexiscan cardiolite DATE OF EXAM: 01/28/2025 COMPARISON: NONE CLINICAL INDICATION: Male, 65 years old with history of R94.31 ABNORMAL ELECTROCARDIOGRAM EKG]; TECHNIQUE: After the intravenous administration of 9.57 mCi Tc 99m Sestamibi - Cardiolite resting SP ECT images acquired 45 minutes post injection. The patient received 0.4mg Lexiscan, 25.9 mCi Tc 99m Sestamibi - Stress images obtained [address] injection FINDINGS: Review of stress and rest SPECT images demonstrates fixed decreased perfusion along the inferior and inferolateral wall but with prominent adjacent GI activity. The defect appears to be more pronounced at the inferolateral apex and is corroborated on the polar maps. Gated analysis shows normal wall mot ion with an estimated left ventricular ejection fraction of 51 %. TID is calculated at 1.52, abnorma lly elevated. IMPRESSION: 1. Inferior wall limited due to prominent adjacent GI activity. Possible focal reversibility involvin g the inferolateral apical wall. Further clinical and EKG correlation recommended. 2. In addition, the 'transient ischemic dilatation' ratio is abnormally increased at 1.52. This can b e seen in setting of multivessel, global inducible ischemia. Again, further evaluation as indicated. 3. LVEF estimated at 51%, borderline to mildly diminished. [facility], Workstation: LUIS DANIEL, 01/28/2025 11:26 AM
--- NOTE | 2025-01-29 13:53 | CA ---
Lexiscan Nuclear Stress Test Report Name: Gregory Garcia Exam Date: 01/28/2025 09:48 Exam Location: [place] Stress Ht (in): 68 Wt (lb): 184 BSA: 1.97 Ordering Phys: Rafia Osullivan DO Referring Phys: RAFIA OSULLIVAN,, Technologist: ADA,, Age: 65 Gender: M : 1960 Procedure CPT: Indications: R94.31 ABNORMAL ELECTROCARDIOGRAM [ECG] [EKG] ICD-10 Codes: Patient History: Diabetes, hyperlipidemia and family history of heart disease. Medications: METFORMIN,,,,, Meds past 24 hrs: Pretest Chest Pain: STRESS TEST Lexiscan Protocol Exercise Duration (min:sec): 02:[address] Depressions (mm): Angina Score: Rollins Score: Resting HR (bpm): 54 Peak HR (bpm): 86 Resting BP (mmHg): 120 / 70 Peak BP (mmHg): 118 / 62 MPHR: 155 Target HR: 132 % MPHR: 55 METS: 1.0 Total Dose: Peak Dose: Atropine: Double Product: 78247 BP Response: Stress Termination: INFUSION COMPLETE Stress Symptoms: NO SYMPTOMS Stress Summary: ECG ANALYSIS Resting ECG: Stress ECG: CONCLUSIONS RESTING EKG: [Normal sinus rhythm, normal EKG] Patient recieved IV infusion of Lexiscan 0.4mg and at peak infusion STRESS EKG showed: [No significant ST-T wave changes diagnostic for ischemia by ST segment analysis] ARRYTHMIAS: [No ectopic rhythms or sustained arrythmias] CONCLUSION: 1. Normal hemodynamic and clinical response to Lexiscan infusion. 2. Non-ischemic EKG response to lexiscan infusion Please refer to the nuclear imaging portion of this stress test for complete interpretation of the study. Dr Julian Calderón (Electronically Signed) Final Date: 28 January 2025 11:46
== END | disposition home or self-care (01) ==
LOC: RADNMMAIN 07:52
PROVIDERS: ATTEND Family Medicine
DX: I49.9 Cardiac arrhythmia, unspecified (principal); R07.9 Chest pain, unspecified; R94.31 Abnormal electrocardiogram [ECG] [EKG]; R42 Dizziness and giddiness
CPT/HCPCS: 93017; 78452; A9500; J2785